=== PATIENT | female | born 1975 | race Caucasian/White ===

== ENCOUNTER 2019-12-17 04:11 | Inpatient (IN) | payer BC ==
[~2019-12-17] VITALS: Ht 160 cm; Wt 52.5 kg
[2019-12-17] MEDS ORDERED: ACETAMINOPHEN 500 MG TABLET ONE (05:14)
--- NOTE | 2019-12-17 05:18 | NUR ---
Pt refused IV, provider notified.
[2019-12-17] MEDS ORDERED: ACETAMINOPHEN 500 MG TABLET PO ONE (05:30)
[2019-12-17] MEDS ORDERED: SODIUM CHLORIDE FLUSH 10ML SYR IVF ONE (05:30)
[2019-12-17] MEDS ORDERED: SODIUM CHLORIDE 0.9% 1,000ML IVBOLUS ONE (05:30)
[2019-12-17 05:46] LABS: ALANINE AMINOTRANSFERASE 32 U/L (12-78); ALBUMIN 2.6 g/dL (3.4-5.0); ANION GAP 6 mmol/L (5-15); CALCIUM 8.8 mg/dL (8.5-10.1); CHLORIDE 102 mmol/L (98-107)
[2019-12-17 05:49] LABS: ALKALINE PHOSPHATASE 198 U/L (45-117); BILIRUBIN,TOTAL 0.2 mg/dL (0.2-1.0); TOTAL PROTEIN 7.6 g/dL (6.4-8.2)
[2019-12-17 06:00] LABS: MEAN CORPUSCULAR HEMOGLOBIN 31.3 pg (27.0-34.8); MEAN PLATELET VOLUME 8.3 fL (7.4-10.4); PLATELET COUNT 544 x10^3/uL (130-400); RED BLOOD COUNT 3.61 x10^6/uL (3.82-5.3); RED CELL DISTRIBUTION WIDTH 13.1 % (9.6-15.2)
[2019-12-17 06:23] LABS: BASOPHILS # (AUTO) 0.03 x10^3/uL (0-0.1); BASOPHILS % (AUTO) 0 % (0-1); EOSINOPHILS # (AUTO) 0.04 x10^3/uL (0-0.4); EOSINOPHILS % (AUTO) 0 % (1-7); LYMPHOCYTES # (AUTO) 1.59 x10^3/uL (1-3.4); LYMPHOCYTES % (AUTO) 7 % (22-44); MD SCAN; MONOCYTES # (AUTO) 1.12 x10^3/uL (0.2-0.8); MONOCYTES % (AUTO) 5 % (2-9); NEUTROPHILS # (AUTO) 18.78 x10^3/uL (1.8-6.8); NEUTROPHILS % (AUTO) 87 % (42-75)
--- NOTE | 2019-12-17 07:02 | NUR ---
Report given to Yadira LEON
--- NOTE | 2019-12-17 07:15 | NUR ---
ERP DR. RUIZ DISCUSSED NEED FOR PIV FOR FURTHER TESTING. PT AGREEABLE. PIV INITIATED. PT STATES SHE CANNOT PROVIDE UA SAMPLE AT THIS TIME.
--- NOTE | 2019-12-17 07:55 | NUR ---
CT WAITING FOR BETA-RN TO CALL WHEN READY
--- NOTE | 2019-12-17 07:58 | NUR ---
PT REFUSING TO PROVIDE UA. DISCUSSED W/ ERP DR. RUIZ PT'S NEED FOR CT AND NO HCG URINE BEING ABLE TO BE COLLECTED. NEW ORDERS PLACED.
[2019-12-17] MEDS ORDERED: CEFTRIAXONE PMX 1GM/50ML 50 ML IVPB ONE (08:00)
--- NOTE | 2019-12-17 08:16 | NUR ---
PT TEARFUL AND CRYING. REFUSING TO GET 2ND SET OF BLOOD CULTURES. AFTER EDUCATION PT AGREEABLE TO 2ND SET OF BLOOD CULTURES.
[2019-12-17] MEDS ORDERED: CEFTRIAXONE PMX 1GM/50ML 50 ML ONE (08:26)
--- NOTE | 2019-12-17 08:40 | NUR ---
PT TO AND FROM RESTROOM W/ STEADY GAIT. UA COLLECTED, LABELED, AND SENT TO LAB. PT RESTING ON RMANLIUS. NADN. VSS. BLOOD CULTURES X 2 DRAWN PRIOR TO START OF IV ABX.
--- NOTE | 2019-12-17 08:50 | NUR ---
PT TO CT IN STABLE CONDITION.
[2019-12-17 09:17] LABS: MICROSCOPIC INDICATED
[2019-12-17] MEDS ORDERED: OMNIPAQUE 350 MG/ML, 100ML BOTTLE ONE (09:23)
--- NOTE | 2019-12-17 09:43 | NUR ---
PT RESTING ON GURNEY. NADN. [place]COSO.
[2019-12-17] MEDS ORDERED: METRONIDAZOLE PMX 500MG/100ML 100 ML IV ONE (10:30)
[2019-12-17] MEDS ORDERED: MORPHINE SULFATE 4 MG/ML, 1ML IVPush ONE (10:30)
[2019-12-17] MEDS ORDERED: METRONIDAZOLE PMX 500MG/100ML 100 ML ONE (10:45)
[2019-12-17] MEDS ORDERED: MORPHINE SULFATE 4 MG/ML, 1ML ONE (10:45)
--- NOTE | 2019-12-17 10:51 | NUR ---
PT AWARE OF POC FOR ADMIT AND IS AGREEABLE. PT RESTING ON SARAH. NELDA. VSS. MEDICATED PER AUG. [facility] DR. MONTEZ AT BEDSIDE.
[2019-12-17] MEDS ORDERED: SODIUM CHLORIDE 0.9% 1,000 ML IV SCH (11:02)
--- NOTE | 2019-12-17 11:22 | NUR ---
REPORT GIVEN TO ZAYNAB ZELAYA RN. ALL QUESTIONS ANSWERED. AWAITING PT TRANSPORT.
[2019-12-17] MEDS ORDERED: ONDANSETRON ODT 4 MG PO PRN (11:30)
[2019-12-17] MEDS ORDERED: OXYcodone IR 5MG TABLET PO PRN (11:30)
[2019-12-17] MEDS ORDERED: morphine SULFATE 10 MG/ML, 1ML IVPush PRN (11:30)
[2019-12-17] MEDS ORDERED: ONDANSETRON 2MG/ML, 2ML IVPush PRN (11:30)
[2019-12-17] MEDS: HEPARIN 5,000 UNITS/ML, 1ML SQ SCH ×2 (11:30→23:19)
[2019-12-17 12:00] VITALS: BP 120/78
[2019-12-17] MEDS: NICOTINE 14MG/24 HR PATCH.TD24 TD SCH (12:10)
[2019-12-17] MEDS: ACETAMINOPHEN 325 MG TABLET PO SCH ×3 (12:10→23:18)
[2019-12-17 12:32] VITALS: BP 120/78
[2019-12-17] MEDS ORDERED: CHLORHEXIDINE 15 ML UDC MM STA (14:58)
[2019-12-17] MEDS ORDERED: CHLORHEXIDINE 15 ML UDC ONE (15:02)
[2019-12-17] MEDS ORDERED: PROPOFOL 10 MG/ML, 20ML ONE (15:56)
[2019-12-17] MEDS ORDERED: FENTANYL PF 100 MCG/2ML ONE ×2 (15:58→16:35)
[2019-12-17] MEDS ORDERED: MIDAZOLAM 1 MG/ML, 2ML ONE (15:58)
[2019-12-17] MEDS ORDERED: OMNIPAQUE 350 MG/ML, 50 ML BOTTLE ONE (16:25)
[2019-12-17] MEDS ORDERED: KETOROLAC 30 MG/1 ML IVPush PRN (16:30)
[2019-12-17] MEDS ORDERED: HYDROmorphone 1 MG/ML, 1ML INJ IVPush PRN (16:30)
[2019-12-17] MEDS ORDERED: OPIUM/BELLADONNA SUPP.RECT 16.2-60 MG PR PRN (16:30)
[2019-12-17] MEDS ORDERED: ACETAMINOPHEN 325 MG TABLET PO PRN (16:30)
[2019-12-17] MEDS ORDERED: OXYcodone 5 MG/5 ML ORAL.SOL UDC PO PRN (16:30)
[2019-12-17] MEDS ORDERED: DIAZEPAM 5 MG/ML, 2ML IVPush PRN (16:30)
[2019-12-17] MEDS ORDERED: FENTANYL PF 100 MCG/2ML IV PRN (16:30)
[2019-12-17] MEDS ORDERED: PHENAZOPYRIDINE 200 MG TABLET PO PRN (16:30)
[2019-12-17] MEDS ORDERED: MEPERIDINE/PF 25MG/ML,1ML ONE ×2 (16:35→17:05)
[2019-12-17] MEDS: MEPERIDINE/PF 25MG/0.5ML IVPush PRN ×2 (16:36→17:08)
[2019-12-17] MEDS ORDERED: ACETAMINOPHEN 325 MG TABLET ONE (17:22)
[2019-12-17] MEDS ORDERED: ACETAMINOPHEN 650 MG/20.3 ML UDC ONE (17:22)
[2019-12-17 19:45] VITALS: BP 94/58
[2019-12-17] MEDS: OXYBUTYNIN CHLORIDE 5 MG TABLET PO SCH (20:47)
[2019-12-17 21:20] VITALS: BP 94/61
[2019-12-17 23:20] VITALS: BP 90/56
[2019-12-18 02:59] VITALS: BP 90/55
[2019-12-18] MEDS: ACETAMINOPHEN 325 MG TABLET PO SCH ×2 (05:30→10:35)
[2019-12-18 07:00] VITALS: BP 93/61
[2019-12-18] MEDS ORDERED: CEFTRIAXONE PMX 1GM/50ML 50 ML IV SCH (08:30)
[2019-12-18] MEDS ORDERED: morphine SULFATE 10 MG/ML, 1ML IVPush PRN (08:30)
[2019-12-18] MEDS: OXYBUTYNIN CHLORIDE 5 MG TABLET PO SCH (10:34)
[2019-12-18] MEDS: NICOTINE 14MG/24 HR PATCH.TD24 TD SCH (10:35)
[2019-12-18] MEDS: HEPARIN 5,000 UNITS/ML, 1ML SQ SCH (10:36)
[2019-12-18] MEDS ORDERED: SODIUM CHLORIDE 0.9% 1,000 ML IV SCH (11:02)
[2019-12-18] MEDS ORDERED: OXYcodone IR 5MG TABLET PO PRN (11:30)
[2019-12-18 13:03] VITALS: BP 102/66
[2019-12-18 13:14] VITALS: BP 147/81
== END 2019-12-18 14:07 | disposition left against medical advice (07) | DRG 854 ==
LOC: ED 04:11 → EDIP 10:15 → 4NE 11:53 → 4EST 19:03
PROVIDERS: ADMIT Internal Medicine; ATTEND Internal Medicine
PROC: BT1F1ZZ Fluoroscopy of Left Kidney, Ureter and Bladder using Low Osmolar Contrast (ICD-10-PCS; 2019-12-17)
PROC: 0T778DZ Dilation of Left Ureter with Intraluminal Device, Via Natural or Artificial Opening Endoscopic (ICD-10-PCS; principal; 2019-12-17 18:00)
DX: A41.9 Sepsis, unspecified organism (principal); N13.6 Pyonephrosis; N17.9 Acute kidney failure, unspecified; F17.200 Nicotine dependence, unspecified, uncomplicated; N28.1 Cyst of kidney, acquired; I95.9 Hypotension, unspecified; R00.0 Tachycardia, unspecified; A59.9 Trichomoniasis, unspecified; Z71.6 Tobacco abuse counseling; Z83.3 Family history of diabetes mellitus; Z03.818 Encounter for observation for suspected exposure to other biological agents ruled out
CPT/HCPCS: 36415; 74177; 74420; 76770; 80053; 81001; 83605; 84703; 85025; 87040; 87077; 87086; 87186; 87635; 93005; 96361; 96365; 96366; 96375; G0378; J0696; J1644; J2175; J2250; J2704; J3010; Q9967; C2617; J2270; J7030